=== PATIENT | male | born 1985 | race Caucasian/White ===

== ENCOUNTER → 2024-07-11 17:30 | Outpatient (REF) | payer BC, SELFPAY | LOC: MRI 3T 17:30 | PROVIDERS: ATTENDING PHYSICIAN Nurse Practitioner Family | DX: H93.A9 Pulsatile tinnitus, unspecified ear (principal); R51.9 Headache, unspecified | CPT/HCPCS: 70544; 70549; 70553; A9585 ==

== ENCOUNTER → 2024-07-30 06:57 | Outpatient (REF) | payer BC, SELFPAY | LOC: HWRAD 06:57 | PROVIDERS: ATTENDING PHYSICIAN Nurse Practitioner Family | DX: E04.1 Nontoxic single thyroid nodule (principal) | CPT/HCPCS: 76536 ==

== ENCOUNTER → 2024-08-07 07:37 | Outpatient (REF) | payer BC, SELFPAY ==
[2024-08-07 07:58] VITALS: BP 151/87; BP_SYST 65
== END ==
LOC: RADI 07:37
PROVIDERS: ATTENDING PHYSICIAN Nurse Practitioner Family
DX: E04.1 Nontoxic single thyroid nodule (principal)
CPT/HCPCS: 88173; 10005

== ENCOUNTER → 2024-08-30 07:07 | Outpatient (REF) | payer BC, SELFPAY | LOC: RAD 07:07 | PROVIDERS: ATTENDING PHYSICIAN Nurse Practitioner Family | DX: K92.1 Melena (principal) | CPT/HCPCS: 74177; Q9967 ==

== ENCOUNTER → 2024-09-18 12:00 | Day surgery (SDC) | payer BC, SELFPAY | LOC: GI 12:00 | PROVIDERS: ATTENDING PHYSICIAN Internal Medicine | DX: K64.8 Other hemorrhoids (principal); R93.3 Abnormal findings on diagnostic imaging of other parts of digestive tract | CPT/HCPCS: 45378 ==